=== PATIENT | male | born 1945 | race Caucasian/White ===

== ENCOUNTER 2016-07-02 19:00 | Outpatient (CLI) | payer MEDICARE, OTHER | END 2016-07-03 06:20 | disposition home or self-care (01) | LOC: SLEEP 19:00 | PROVIDERS: ATTEND Otolaryngology Otolaryngology/Facial Plastic Surgery | DX: G47.10 Hypersomnia, unspecified (principal); R06.83 Snoring | CPT/HCPCS: 95810 ==